=== PATIENT | male | born 2005 | race Two or more races ===

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

== ENCOUNTER 2025-02-08 21:49 | Emergency (ER) | payer OTHER, SELFPAY ==
[~2025-02-08] VITALS: Ht 188 cm; Wt 72.7 kg
[2025-02-08 21:56] VITALS: BP 108/77; TEMP 99.7; O2SAT 97
[2025-02-08 22:57] LABS: KETONE, URINE AUTO RFX TRACE mg/dL (NEGATIVE); LEUKOCYTE ESTERASE UR AUTO RFX NEGATIVE (NEGATIVE); MUCUS, URINE RFX SMALL (NEGATIVE); NITRITE, URINE AUTO RFX NEGATIVE (NEGATIVE); RBC, URINE AUTO RFX 0 /HPF (0-3); SQUAM EPITHELIAL CELL UR AURFX 0 /HPF (0-6); WBC, URINE AUTO RFX 1 /HPF (0-3)
== END 2025-02-09 00:09 | disposition left against medical advice (07) ==
LOC: M ED 21:49
DX: Z53.21 Procedure and treatment not carried out due to patient leaving prior to being seen by health care provider (principal)